=== PATIENT | female | born 1950 | race African-American/Black ===

== ENCOUNTER 2021-03-11 15:03 | Outpatient (CLI) | payer MEDICARE | END 2021-03-11 15:04 | disposition home or self-care (01) | LOC: CSHMRI 15:03 | PROVIDERS: ATTEND Orthopaedic Surgery Hand Surgery | DX: M77.8 Other enthesopathies, not elsewhere classified (principal); G56.82 Other specified mononeuropathies of left upper limb; M67.432 Ganglion, left wrist ==

== ENCOUNTER 2021-07-30 14:31 | Outpatient (CLI) | payer MEDICARE | END 2021-07-30 14:32 | disposition home or self-care (01) | LOC: CSHMAMMO 14:31 | PROVIDERS: ATTEND Family Medicine | DX: Z12.31 Encounter for screening mammogram for malignant neoplasm of breast (principal); Z80.3 Family history of malignant neoplasm of breast | CPT/HCPCS: 77063; 77067 ==

== ENCOUNTER 2022-10-30 11:56 | Outpatient (CLI) | payer MEDICARE | END 2022-10-30 11:57 | disposition home or self-care (01) | LOC: CSHMAMMO 11:56 | PROVIDERS: ATTEND Student in an Organized Health Care Education/Training Program | DX: Z12.31 Encounter for screening mammogram for malignant neoplasm of breast (principal); Z80.3 Family history of malignant neoplasm of breast | CPT/HCPCS: 77063; 77067 ==

== ENCOUNTER 2022-11-08 04:18 | Emergency (ER) | payer MEDICARE ==
[2022-11-08 05:11] LABS: #Basophils 0.1 10x3/uL (0.0-0.2); #Eosinphils 0.3 10x3/uL (0.0-0.5); #Monocytes 1.1 10x3/uL (0.0-1.1); %Basophils 0.8 % (0.0-2.0); %Eosinophils 2.2 % (0.0-6.0); %Lymphocytes 40.7 % (18.0-47.0); %Monocytes 7.3 % (0.0-10.0); %Neutrophils 48.7 % (40.0-75.0); Hemoglobin 11.8 g/dL (12.0-15.5); Mean Corpuscular HGB CONC 30.7 g/dL (32.0-36.0); Mean Corpuscular Hemoglobin 25.5 pg (27.0-33.0); Mean Corpuscular Volume 82.9 fl (81.6-98.3); Mean Platelet Volume 9.3 fl (7.4-10.4); Platelet Count 407 10x3/uL (150-450); Red Blood Cell (RBC) Count 4.63 10x6/uL (3.90-5.03); White Blood Cell (WBC) Count 14.3 10x3/uL (3.5-10.5)
[2022-11-08 05:21] LABS: PTT 30.4 sec (22.0-33.0); Prothrombin Time 10.5 sec (9.5-12.1)
[2022-11-08 05:25] LABS: ALT (SGPT) 12 U/L (8-55); AST (SGOT) 16 U/L (5-34); Albumin 4.2 g/dL (3.4-4.8); Alkaline Phosphatase 138 U/L (40-110); Anion Gap 15 mmol/L (10-20); BUN (Urea Nitrogen) 14 mg/dL (9.8-20.1); Bilirubin, Total 0.4 mg/dL (0.2-1.2); CK (CPK) 118 U/L (29-168); Calc. Creatinine Clearance 0 mL/min (70-130); Calcium 9.5 mg/dL (7.8-10.44); Carbon Dioxide 26 mmol/L (23-31); Chloride 101 mmol/L (98-107); Estimated GFR 60; Globulin 3.7 g/dL (2.4-3.5); Glucose 160 mg/dL (83-110); Magnesium 1.7 mg/dL (1.6-2.6); Potassium 3.7 mmol/L (3.5-5.1); Protein, Total 7.9 g/dL (5.8-8.1); Sodium 138 mmol/L (136-145)
[2022-11-08] MEDS ORDERED: Ketorolac Tromethamine 30 MG/ML VIAL ONE (05:51)
== END 2022-11-08 06:22 | disposition home or self-care (01) ==
LOC: CSHERS 04:18
DX: M25.511 Pain in right shoulder (principal); R06.00 Dyspnea, unspecified; D72.829 Elevated white blood cell count, unspecified; E78.5 Hyperlipidemia, unspecified; E11.9 Type 2 diabetes mellitus without complications; I10 Essential (primary) hypertension; Z79.84 Long term (current) use of oral hypoglycemic drugs; Z79.82 Long term (current) use of aspirin; Z79.899 Other long term (current) drug therapy
CPT/HCPCS: 70450; 71045; 80053; 82550; 83735; 84443; 84484; 85025; 85610; 85730; 93005; 96374; J1885

== ENCOUNTER 2023-08-07 15:10 | Outpatient (CLI) | payer MEDICARE | END 2023-08-07 15:11 | disposition home or self-care (01) | LOC: CSHMAMMO 15:10 | PROVIDERS: ATTEND Student in an Organized Health Care Education/Training Program | DX: Z13.820 Encounter for screening for osteoporosis (principal); Z78.0 Asymptomatic menopausal state | CPT/HCPCS: 77080 ==

== ENCOUNTER 2024-03-23 12:52 | Outpatient (CLI) | payer MEDICARE | END 2024-03-23 12:53 | disposition home or self-care (01) | LOC: CSHCP 12:52 | PROVIDERS: ATTEND Internal Medicine Critical Care Medicine | DX: J45.909 Unspecified asthma, uncomplicated (principal) | CPT/HCPCS: 94060; 94664; 94726; 94729; 94760 ==